=== PATIENT | male | born 1975 | race Caucasian/White ===

== ENCOUNTER 2018-02-08 22:11 | Emergency (ER) | payer OTHER, SELFPAY ==
[2018-02-08 22:12] VITALS: BP 160/97; PULSE 96; RESP 15; TEMP 36.9; BMI 52.6
--- NOTE | 2018-02-08 22:21 | EKG12_ITS ---
Test Reason : CP Blood Pressure : / mmHG Vent. Rate : 092 BPM Atrial Rate : 092 BPM P-R Int : 146 ms QRS Dur : 106 ms QT Int : 378 ms P-R-T Axes : 040 035 050 degrees QTc Int : 467 ms Sinus rhythm with occasional Premature ventricular complexes Nonspecific T wave abnormality Prolonged QT Abnormal ECG Confirmed by LANA ESPINAL, TEA ([id number]), assistant film editor MACY JAMES ([id number]) on 02/12/2018 2:24:31 PM Referred By: KIERAN Confirmed By:TEA SCHWARTZ MD
--- NOTE | 2018-02-08 22:21 | RAD_ITS ---
STUDY: X-RAY CHEST REASON FOR EXAM: Male, 42 years old. Chest pain TECHNIQUE: Single AP portable view of the chest. COMPARISON: 10/20/2010. FINDINGS: The lungs are clear and expanded. There is no demonstrated pleural abnormality. Normal size heart. Normal mediastinum and yinka. Normal visualized pulmonary arteries. Normal visualized aortic arch and descending thoracic aorta. Normal visualized thoracic spine. Normal visualized ribs, clavicles, and shoulders. There is no demonstrated abnormality of the visualized soft tissue structures of the upper abdomen. RAD/Chest 1 View (Portable) IMPRESSION: Normal x-ray examination of the chest. Electronically Signed: Ayden Vazquez MD at 23:07 EDT , Service support ,
--- NOTE | 2018-02-08 22:21 | ED.VISSUMM ---
- ER Visit Summary Date of Service: 02/08/18 Chief Complaint: Chest pain, shortness of breath History of Present Illness: The patient is a 42 M who presents with chest pain and shortness of breath. He states for the past 1 week he has had intermittent pains in the left lower chest area. He describes them as sharp. They come and go as they please and nothing provokes them or makes it better. He states he has had associated shortness of breath has been constant. He feels fatigued as well. He states that he works a full-time job and goes to college full-time. He sleeps about 4 hours a night. He denies any leg swelling he has no DVT or PE history or risk factors. He is hypertensive and diabetic patient. He is a non-smoker. He has no significant early family history of coronary disease Physical Examination: Vital signs reviewed. HEENT exam unremarkable. Heart is regular rate and rhythm without murmurs. Lungs are clear to auscultation. His chest is nontender to palpation. Abdomen is soft and nontender. Extremities reveal no edema. Peripheral pulses are equal. Skin exam normal. Neurologic exam normal. Test Results: EKG is normal sinus rhythm with rate of 92. No ST changes. Laboratory studies normal except for platelets of 141. D-dimer 0.66 CTA of the chest reveals small nodules with no PE or dissection. Chest x-ray normal Emergency Department Course and Treatment: Patient was given aspirin. CTA was obtained to the elevated d-dimer. Showed no acute findings. He was notified of the pulmonary nodules and will follow up with his PCP. His pain is intermittent. I do not feel that this is cardiac in nature. He has a ANIKA score of 0. He is low risk. I discussed follow-up with him that he needs to see his PCP for further evaluation. At this point I do not feel he needs to be admitted Treatment Plan: [] Disposition: Discharge Impression: Chest pain This note was generated with [employer] dictation software. It may contain incorrect words, spelling, and punctuation that were not noted in review of the chart prior to signing ED Disposition - Plan for ED Patient: Disposition: Home or Assisted Living Chief Complaint: Chest Pain Instructions: ED Chest Pain NonCardiac Referrals: Derrick Fernandez MD [Primary Care Provider] -
--- NOTE | 2018-02-08 22:25 | NURSING ---
NO OLD EKG
[2018-02-08 22:37] LABS: Absolute Lymphocyte Count 2.74 X10^3/ul (0.83-4.51); Basophil# 0.02 X10^3/uL; Basophil% 0.3 % (0-1); Eosinophil# 0.19 X10^3/uL; Eosinophils% 2.9 % (0-5); Hematocrit 44.9 % (40-54); Lymphocyte # 2.74 X10^3/ul (4.0); Lymphocyte % 42.4 % (19-41); Mean Corp Hgb Conc 35.6 g/gl (32-36); Mean Corpuscular Hgb 29.6 pg (27.0-32.0); Mean Corpuscular Volume 83.1 fL (80-94); Mean Platelet Vol. 10.3 fl (6.2-12.0); Monocyte% 7.7 % (0-10); Neutrophil % 46.5 % (47-70); POSITIVE COUNT NO; POSITIVE DIFFERENTIAL NO; POSITIVE MORPHOLOGY NO; Platelet Count 141 K/mm3 (150-450); RBC Distribution Width CV 13.5 % (11.6-14.6); RBC Distribution Width SD 40.4 fl (35.1-43.9); White Blood Count 6.5 K/mm3 (4.4-11.0)
[2018-02-08] MEDS: Aspirin 81 MG TAB.CHEW 324 MG PO (22:45)
[2018-02-08 22:46] VITALS: O2SAT 96
[2018-02-08 22:48] LABS: D-Dimer Quantitative (DVT/PE) 0.66 FEU/ug/m (0.27-0.49)
--- NOTE | 2018-02-08 22:48 | CT_ITS ---
CTA Chest WO/W Contrast INDICATION: ELEV DDIMER/CP. Repeated study d/t suboptimal filling of pulmonary arteries COMPARISON: None TECHNIQUE: High resolution axial CT imaging of the chest during intravenous contrast administration, CTA protocol. Multiplanar and MIP reformatted images. 200 mL of Isovue-370 were given intraveniously. (Repeat due to difficulties in bolus timing) Radiation dose optimization technique applied. FINDINGS: Opacification of the pulmonary arterial vascularity is suboptimal. There is no evidence of central or segmental pulmonary arterial filling defect to suggest PE. Subsegmental vessels are not well seen. The thoracic aorta is unremarkable. The heart size is normal. Is no evidence of mediastinal or hilar lymphadenopathy. A calcified granuloma is noted in the right middle lobe and at the right base. Subsegmental atelectasis are seen in the dependent portions of the lower lobes. The lungs are otherwise clear. No evidence of pleural effusion. CT/CTA Chest W/WO Contrast IMPRESSION: No evidence of PE or aortic dissection. 2 small right middle lobe and lower lobe calcified granulomas and subsegmental atelectasis in dependent portions of the lung bases, lungs otherwise clear. at 0011 Reported and signed by: Bertha Contreras MD Electronically Signed: Bertha Contreras MD at 0:10 EDT Tel , Service support ,
--- NOTE | 2018-02-08 22:48 | NURSING ---
DR. ALCARAZ MADE AWARE OF D DIMER OF 0.66
[2018-02-08 22:52] LABS: Anion Gap 7 (5-15); BUN 13 mg/dL (7-18); BUN/Creat Ratio 12.4 RATIO (10-20); Calcium,Total 8.4 mg/dL (8.5-10.1); Chloride 104 mmol/L (98-107); Creatinine, Serum 1.05 mg/dL (0.70-1.30); EST Glomerular Filtration Rate 83 mL/min (>60); Est Glom Filt Rate - Afr Amer 100 mL/min (>60); Glucose 329 mg/dL (74-106); Sodium Level 136 mmol/L (136-145)
--- NOTE | 2018-02-09 00:04 | ED.DEP ---
ED Disposition - Plan for ED Patient: Disposition: Home or Assisted Living Chief Complaint: Chest Pain Instructions: ED Chest Pain NonCardiac Referrals: Derrick Fernandez MD [Primary Care Provider] -
[2018-02-09 00:22] VITALS: BP 150/87; PULSE 86; PULSE 89; RESP 20; O2SAT 95
== END 2018-02-09 00:25 | disposition home or self-care (01) ==
PROVIDERS: Emergency Provider Emergency Medicine; Family Provider Family Medicine; PCP Family Medicine
DX: R07.9 Chest pain, unspecified (principal); R06.02 Shortness of breath; I10 Essential (primary) hypertension; E11.9 Type 2 diabetes mellitus without complications; Z79.84 Long term (current) use of oral hypoglycemic drugs; Z79.899 Other long term (current) drug therapy
CPT/HCPCS: 71045; 71275; 80048; 84484; 85025; 85379; 93005; 99285; Q9967; A4216

== ENCOUNTER 2019-05-03 11:49 | Emergency (ER) | payer MEDICAID, SELFPAY ==
[2019-05-03 11:50] VITALS: BP 158/94; PULSE 76; RESP 17; TEMP 36.1; O2SAT 98; BMI 42.7
--- NOTE | 2019-05-03 12:58 | ED.VISSUMM ---
- ER Visit Summary Date of Service: 05/03/19 Chief Complaint: Left upper dental pain and swelling History of Present Illness: The patient is a 44 M no seen in past medical history. Patient states he fractured his tooth a week or 2 ago. And now he has more pain and swelling. Denies any fever or discharge. Physical Examination: Middle-aged male. No acute distress. Vital signs are stable and afebrile. HEENT exam left upper premolar is fractured about half tooth is missing. The gum above it is mildly swollen. There is no fluctuance or anything in the drain. He also has multiple missing molars and eroded teeth. There is no swelling or tenderness underneath his tongue. Posterior pharynx is normal. Neck nontender no lymphadenopathy. Lungs clear to auscultation bilaterally. Heart regular rhythm no murmur. Abdomen soft nontender. Otherwise exam is unremarkable. Test Results: None Emergency Department Course and Treatment: Dental fracture with early soft tissue dental infection. Noted on Pen-Vee K in the emergency department. Treatment Plan: Follow-up with his dentist as soon as possible. Pen-Vee K 4 times daily for 10 days. Motrin and Tylenol for pain. Disposition: DC Impression: Left upper premolar dental fracture with soft tissue dental infection This note was generated with [employer] dictation software. It may contain incorrect words, spelling, and punctuation that were not noted in review of the chart prior to signing ED Disposition - Plan for ED Patient: Referrals: Derrick Fernandez MD [Primary Care Provider] -
--- NOTE | 2019-05-03 13:00 | ED.DEP ---
ED Disposition - Plan for ED Patient: Disposition: Home or Assisted Living Instructions: Dental Abscess Prescriptions: Penicillin Vk [Pen-Vee K , V-Cillin K] 500 mg PO 4X/DAY #40 tab Prescription Printed Additional Instructions: Call and follow-up with your dentist as soon as possible. Warm salt water gargling. Tylenol and Motrin for pain. Penicillin 4 times a day till gone.
[2019-05-03] MEDS: Penicillin Vk 250 MG Tablet 500 MG PO (13:09)
== END 2019-05-03 13:14 | disposition home or self-care (01) ==
PROVIDERS: Emergency Provider Emergency Medicine; Family Provider Family Medicine; PCP Family Medicine
DX: S02.5XXA Fracture of tooth (traumatic), initial encounter for closed fracture (principal); X58.XXXA Exposure to other specified factors, initial encounter; Y93.9 Activity, unspecified; K04.7 Periapical abscess without sinus
CPT/HCPCS: 99283

== ENCOUNTER 2020-08-14 03:38 | Emergency (ER) | payer MEDICAID, SELFPAY ==
[2020-08-14 03:41] VITALS: BP 188/97; PULSE 88; RESP 18; TEMP 36.9; O2SAT 98; BMI 47.4
--- NOTE | 2020-08-14 03:58 | ED.VIS.GEN ---
History of Present Illness Chief Complaint: Cold Sx Informant: Patient Onset: Days Context: Gradual Onset Current Severity: Mild Maximum Severity: Mild Narrative: Patient presents with mild cough and congestion. He is not bringing up any sputum. No fevers or chills. His daughter is here being seen for similar. Patient denies any known Covid exposure. Denies longstanding lung disease. - Past Medical History (1) Hypertension Status: Chronic (2) Diabetes Status: Chronic Past Medical History - Allergies and Home Meds Allergies/Adverse Reactions: Allergies lisinopril Allergy (Verified 08/14/20 03:39) Anaphylaxis Primary Care Physician: Derrick Fernandez MD [Primary Care Provider] - Prior records reviewed: Yes Lives: With Family Smoking Status: Never smoker Review of Systems General: Denies: Chills, Fever Eyes: Denies: Visual changes - bilaterally ENT: Denies: Bilateral ear pain Cardiovascular: Denies: Chest pain Respiratory: Reports: Dyspnea, Cough. Denies: Sputum Gastrointestinal: Denies: Abdominal pain, Nausea, Vomiting, Diarrhea Neurological: Denies: Headache Hematologic: Denies: Easy bruising, Easy bleeding Allergy: Denies: Uticaria Physical Exam Vital Signs/Narrative: Vital Signs Temp Pulse Resp BP Pulse Ox 08/14/20 03:41 98.5 F 88 18 188/97 H 98 Inital Vital Signs reviewed: Yes General: Well nourished, Well developed Head: Normocephalic ENT: Moist mucous membranes Neck: Supple Cardiovascular: Regular rate, Regular rhythm Respiratory: No distress, CTA bilaterally Abdomen: Soft, Nontender Skin: Normal color Neurological: Alert, Oriented x3 Psychological: Normal affect Diagnostic/Tx/Re-eval 08/14/20 04:03 Mucosa - Nose SARS-CoV-2 Antigen (Rapid) - Final - Medical Decision Making Rapid Covid antigen test is negative. I discussed with patient using supportive care for his symptoms. Lungs are clear with good oxygen saturation. Do not feel he needs x-ray imaging at this time. ED Disposition - Plan for ED Patient: Disposition: Home or Assisted Living Diagnosis: Viral URI Instructions: ED URI Viral Referrals: Derrick Fernandez MD [Primary Care Provider] - As Needed
== END 2020-08-14 04:48 | disposition home or self-care (01) ==
PROVIDERS: Emergency Provider Emergency Medicine; PCP Family Medicine
DX: J06.9 Acute upper respiratory infection, unspecified (principal)
CPT/HCPCS: 87426; 99282

== ENCOUNTER 2021-03-23 19:49 | Observation (INO) | payer MEDICAID, SELFPAY ==
[2021-03-23 19:50] VITALS: BP 186/97; PULSE 103; RESP 16; TEMP 36.4; O2SAT 99; BMI 48.9
--- NOTE | 2021-03-23 20:16 | EKG12_ITS ---
Test Reason : CP Blood Pressure : / mmHG Vent. Rate : 094 BPM Atrial Rate : 094 BPM P-R Int : 148 ms QRS Dur : 142 ms QT Int : 374 ms P-R-T Axes : 032 023 -06 degrees QTc Int : 467 ms Normal sinus rhythm Right bundle branch block Cannot rule out Inferior infarct , age undetermined Abnormal ECG Confirmed by DENISSE ESPINAL, DARREL ([id number]), story editor CARLOS RIVERA ([id number]) on 03/27/2021 1:07:49 PM Referred By: LAKHWINDER Confirmed By:DARREL SALCEDO MD
--- NOTE | 2021-03-23 20:17 | EDS_ITS ---
HPI History of Present Illness Chief Complaint: Chest Pain Informant: patient Onset/Context/Timing Onset: Days Activity at onset: gradual Timing: Intermittent and Lasts (10 to 15 minutes) Quality: Positive for Tightness Location: Substernal, Right Chest and Left Chest Worsened By: Exertion Relieved By: Rest Associated Symptoms: Positive for Diaphoresis and Dyspnea; Negative for Nausea, Vomiting, Cough, Fever, Lightheadedness, Acid Reflux and Palpitations Narrative Narrative: Patient presents with chest pain and shortness of breath that has been intermittent over the past couple days. Patient states it has come on gradually. Patient states it is worse whenever he exercises. Patient states that his pain and shortness of breath will last approximately 10 to 15 minutes and then resolved. Patient states he feels like there is a tightness around his chest. Patient states it is diffuse across both sides of his chest. Patient states it is worse with exertion and better with rest. Patient admits to some diaphoresis yesterday. Patient denies any nausea or vomiting. Patient denies any cough or fevers. Patient denies any lightheadedness or palpitations. CVD Risk Factors: Positive for Diabetes; Negative for Hypertension, Hypercholesterolemia, Family History 1' </=55 and Smoking PE Risk Factors: Negative for Recent Travel/Surgery, Recent Immobilization, Prior DVT or PE and Cancer [facility] Medical History Diabetes Home Medications ergocalciferol (vitamin D2) [Vitamin D2] 1,000 unit PO DAILY 03/23/21 [History Last Taken Unknown] metformin 500 mg PO DAILY 03/23/21 [History Last Taken Unknown] Allergy/AdvReac Type Severity Reaction Status Date / Time lisinopril Allergy Anaphylaxis Verified 03/23/21 19:53 Social History Smoking Status: Never smoker ROS ROS ED Constitutional Constitutional ED: Denies chills or fever(s) Eyes Eyes: Denies blurry vision or change in vision ENT ENT ED: Denies rhinorrhea or sore throat Cardiovascular Cardiovascular: Reports chest pain; Denies palpitations Respiratory/Chest Respiratory/Chest: Reports dyspnea; Denies cough Gastrointestinal Gastrointestinal: Reports nausea; Denies abdominal pain or vomiting Genitourinary Genitourinary ED: Denies dysuria or hematuria Musculoskeletal Musculoskeletal: Reports back pain; Denies neck pain Integumentary Reports rash; Denies abscess Neurologic Neurologic: Denies headache(s) or weakness Allergic/Immunologic Allergic/Immunologic ED: Denies mouth swelling or urticaria EXAM Physical Exam Const Vital Signs: 03/23/21 19:50 03/23/21 19:57 03/23/21 20:28 Temperature 97.6 F L Temperature Source Temporal Pulse Rate 103 H Respiratory Rate 16 Respiratory Effort Normal Non-Labored Blood Pressure 186/97 H Blood Pressure Mean 126 Pulse Ox 99 Oxygen Delivery Method Room Air Room Air 03/23/21 20:34 03/23/21 20:49 03/23/21 22:00 Temperature Temperature Source Pulse Rate 97 78 78 Respiratory Rate 15 16 Respiratory Effort Blood Pressure 158/102 H 130/70 H 129/75 H Blood Pressure Mean 90 93 Pulse Ox 97 98 Oxygen Delivery Method Room Air Room Air 03/23/21 23:00 Temperature Temperature Source Pulse Rate 79 Respiratory Rate 19 H Respiratory Effort Blood Pressure 140/92 H Blood Pressure Mean 108 Pulse Ox 98 Oxygen Delivery Method Room Air Positive well nourished, well developed and obese General Appearance ED: well developed Nutritional Appearance: obese HEENT normocephalic and atraumatic Eyes PERRL and EOMs intact bilaterally Neck supple and no JVD Chest Wall palpation of chest normal Resp normal respiratory effort and clear to auscultation bilaterally Effort and Inspection: Negative for respiratory distress Cardio regular rate, regular rhythm and no murmurs GI normal to inspection, nondistended, normoactive bowel sounds, soft to palpation, non-tender and non-distended Extremity normal to inspection General Extremety ED: Negative for edema or tenderness General Extremity: Negative for edema Neuro oriented x3, CN's II-XII intact bilaterally and no sensory deficits noted Sensorium / Orientation: awake and alert Motor Exam: strength 5/5 throughout Psych mental status grossly normal Heart Score History: Highly Suspicious ECG: Nonspecific Repolarization Age: </= 45 years Risk Factors: 1 or 2 Risk Factors Troponin: </= Normal Limit Score: 4 MDM MDM MDM Narrative Medical decision making narrative: EKG was obtained. On my interpretation, it showed a normal sinus rhythm with a rate of 94. VT interval and QTc intervals were all normal. [place] was normal. There are nonspecific ST-T wave changes. There is a new right bundle branch block pattern compared to previous EKG. Portable 1 view chest x-ray was obtained. On my interpretation, lung galeas are clear. There is normal cardiac silhouette. Bony thorax is normal. There is no acute process noted. Radiologist also interpreted the x-ray and agrees. CBC and basic metabolic profile were obtained and were essentially within normal limits. D-dimer was obtained and was slightly elevated at 0.58. High- sensitivity troponin was 4.0. Repeat high-sensitivity troponin was 4.9. CTA of the chest was obtained. There is no evidence of central pulmonary embolism. This was interpreted by the radiologist and reviewed by myself. Patient has a HEART score of 4. Case was discussed with the hospitalist. Patient will be admitted for observation. Patient understands and is agreeable with the plan. All questions were answered. Lab Data Attestation: I reviewed the patient's lab results. Labs: Laboratory Results - last 24 hr 03/23/21 03/23/21 03/23/21 20:04 20:04 20:28 WBC 10.4 RBC 5.76 Hgb 16.4 Hct 48.6 MCV 84.4 MCH 28.5 MCHC 33.7 RDW Std Deviation 40.0 RDW Coeff of Eugenie 13.2 Plt Count 186 MPV 10.6 Immature Gran % (Auto) 0.400 Neut % (Auto) 69.2 Lymph % (Auto) 23.1 Bacon % (Auto) 5.9 Eos % (Auto) 0.8 Baso % (Auto) 0.6 Absolute Neuts (auto) 7.2 Absolute Lymphs (auto) 2.41 Nucleated RBC % 0 D-Dimer Quant (PE/DVT) 0.58 H* Sodium 136 Potassium 4.4 Chloride 104 Carbon Dioxide 29.0 Anion Gap 3 L BUN 19 H Creatinine 1.21 Estim Creat Clear Calc 81.28 Est GFR (MDRD) Af Amer 84 Est GFR (MDRD) Non-Af 69 BUN/Creatinine Ratio 15.7 Glucose 276 H Calcium 9.3 Troponin I High Sens 4.0 03/23/21 22:06 WBC RBC Hgb Hct MCV MCH MCHC RDW Std Deviation RDW Coeff of Eugenie Plt Count MPV Immature Gran % (Auto) Neut % (Auto) Lymph % (Auto) Bacon % (Auto) Eos % (Auto) Baso % (Auto) Absolute Neuts (auto) Absolute Lymphs (auto) Nucleated RBC % D-Dimer Quant (PE/DVT) Sodium Potassium Chloride Carbon Dioxide Anion Gap BUN Creatinine Estim Creat Clear Calc Est GFR (MDRD) Af Amer Est GFR (MDRD) Non-Af BUN/Creatinine Ratio Glucose Calcium Troponin I High Sens 4.9 Radiography Chest X-Ray - ED: 1 View, Read by ED Physician, Read by Radiologist and Normal Diagnostic Testing: Radiology Impression Chest X-Ray 03/23/21 20:35 IMPRESSION: No acute radiographic abnormalities. Electronically Signed: Jack Galvez MD at 21:31 EDT Tel , Service support , Chest CTA 03/23/21 22:02 IMPRESSION: 1. There is limited enhancement of the main pulmonary artery and right and left pulmonary arteries. There is limited enhancement of the bilateral peripheral pulmonary arteries. There is no demonstrated large or obvious pulmonary embolism, however smaller emboli cannot be excluded due to suboptimal contrast opacification of the arteries. 2. No consolidation or pulmonary edema or pleural effusion is present. Electronically Signed: Amado Burns MD at 23:29 EDT , Service support , EKG Initial EKG: Attestation: I personally reviewed and interpreted this EKG as follows: Interpretation: Sinus Rhythm (94), No Acute Injury Pattern, RBBB and Non-Specific ST Changes Prior EKG tracings: available for review Prior: Changed (The right bundle branch block is new compared to previous EKG dated 02/08/2018.) Treatment and Re-Evaluation Vital Sign Attestation:: Vital signs were reviewed prior to admission. They are stable. Discharge Plan Triage Chief Complaint: Chest Pain ED Provider: Yovani Sandoval Dx/Rx/DC Orders Clinical Impression: Chest pain Prescriptions: No Action metformin 500 mg Tablet Extended Release 24 Hr 500 mg PO DAILY RF: 0 Vitamin D2 1,000 unit Capsule 1,000 unit PO DAILY RF: 0 Primary Care Provider: Derrick Fernandez Referrals: Derrick Fernandez MD [Primary Care Provider] - Disposition Disposition: Acute Care Hospital [facility]
[2021-03-23] MEDS: Aspirin 81 MG TAB.CHEW 324 MG PO (20:32)
[2021-03-23 20:34] VITALS: BP 158/102; PULSE 97
[2021-03-23] MEDS: Nitroglycerin SL (ED/IMG/CATH) 0.4 MG TABLET SL (20:34)
--- NOTE | 2021-03-23 20:35 | RAD_ITS ---
INDICATION: chest pain EXAMINATION/TECHNIQUE: X-RAY - XR Chest 1 View COMPARISON: None. FINDINGS: The lungs are clear. The cardiomediastinal silhouette is unremarkable. No pleural effusion or pneumothorax. No acute osseous abnormalities. RAD/Chest 1 View (Portable) IMPRESSION: No acute radiographic abnormalities. Electronically Signed: Jack Galvez MD at 21:31 EDT Tel , Service support ,
[2021-03-23 20:37] LABS: Absolute Lymphocyte Count 2.41 X10^3/uL (0.83-4.51); Absolute Neutrophil Count 7.2 X10^3/uL (2.0-7.7); Basophil# 0.06 X10^3/uL; Basophil% 0.6 % (0-1); Eosinophil# 0.08 X10^3/uL; Eosinophils% 0.8 % (0-5); Hematocrit 48.6 % (40-54); Hemoglobin 16.4 g/dL (13.0-16.5); Lymphocyte # 2.41 X10^3/ul (0.83-4.51); Lymphocyte % 23.1 % (19-41); Mean Corp Hgb Conc 33.7 g/dL (32-36); Mean Corpuscular Hgb 28.5 pg (27.0-32.0); Mean Corpuscular Volume 84.4 fL (80-94); Mean Platelet Vol. 10.6 fl (6.2-12.0); Monocyte# 0.62 X10^3/uL; Monocyte% 5.9 % (0-10); NRBC Flagged by Analyzer 0 % (0-5); Neutrophil # 7.23 X10^3/uL (2.7-7.7); Neutrophil % 69.2 % (47-70); Platelet Count 186 K/mm3 (150-450); RBC Distribution Width CV 13.2 % (11.6-14.6); Red Blood Count 5.76 M/mm3 (4.6-6.2); White Blood Count 10.4 K/mm3 (4.4-11.0)
[2021-03-23 20:49] VITALS: BP 130/70; PULSE 78; RESP 15; O2SAT 97
[2021-03-23 20:51] LABS: Anion Gap 3 (5-15); BUN 19 mg/dL (7-18); BUN/Creat Ratio 15.7 RATIO (10-20); Calcium,Total 9.3 mg/dL (8.5-10.1); Chloride 104 mmol/L (98-107); Creatinine, Serum 1.21 mg/dL (0.70-1.30); EST Glomerular Filtration Rate 69 mL/min (>60); Est Glom Filt Rate - Afr Amer 84 mL/min (>60); Estimated Creatinine Clearance 81.28 ml/min; Glucose 276 mg/dL (74-106); Potassium 4.4 mmol/L (3.5-5.1); Sodium Level 136 mmol/L (136-145)
[2021-03-23 21:33] LABS: D-Dimer Quantitative (DVT/PE) 0.58 FEU/ug/m (0.27-0.49)
[2021-03-23 22:00] VITALS: BP 129/75; PULSE 78; RESP 16; O2SAT 98
--- NOTE | 2021-03-23 22:02 | CT_ITS ---
STUDY: CTA CHEST REASON FOR EXAM: Male, 45 years old. Elevated D-dimer RADIATION DOSAGE (If Supplied By Facility): CTDIvol = ( 15.832 ) mGy, DLP = ( 1099.10 ) mGycm TECHNIQUE: The examination was performed with the intravenous administration of IV 100mL Isovue-370. Post-processing of the angiographic images was performed, with multiplanar reformation and 3D reconstruction. Individualized dose optimization techniques were used for this CT. COMPARISON: CT of the chest dated FEBRUARY 08, 2018 FINDINGS: There is limited enhancement of the main pulmonary artery and right and left pulmonary arteries. There is limited enhancement of the bilateral peripheral pulmonary arteries. There is no demonstrated large or obvious pulmonary embolism, however smaller emboli cannot be excluded due to suboptimal contrast opacification of the arteries. Normal thoracic aorta and visualized great vessels. There is no demonstrated aortic dissection. Normal heart size and pericardium. Normal mediastinum. Normal hilar regions. Normal visualized trachea and bronchi. The lungs are well expanded. Normal pulmonary parenchyma. A small calcified granuloma is present in the right lower lobe. No consolidation or pulmonary edema or pleural effusion is present. Normal pleura. Normal chest wall structures. There are degenerative changes of thoracic spine. Normal visualized upper abdomen. CT/CTA Chest W/WO Contrast IMPRESSION: 1. There is limited enhancement of the main pulmonary artery and right and left pulmonary arteries. There is limited enhancement of the bilateral peripheral pulmonary arteries. There is no demonstrated large or obvious pulmonary embolism, however smaller emboli cannot be excluded due to suboptimal contrast opacification of the arteries. 2. No consolidation or pulmonary edema or pleural effusion is present. Electronically Signed: Amado Burns MD at 23:29 EDT , Service support ,
[2021-03-23 22:33] LABS: Troponin-I HS 4.9 pg/mL (3.0-78.5)
[2021-03-23] MEDS: 0.9% Normal Saline 1,000 ML 999 ML IV (22:51)
[2021-03-23 23:00] VITALS: BP 140/92; PULSE 79; RESP 19; O2SAT 98
[2021-03-24] VITALS (10 sets, daily range): BP systolic 134–182; BP diastolic 72–105; PULSE 68–84; RESP 14–18; TEMP 36.7–37; O2SAT 96–98; BMI 49.6
--- NOTE | 2021-03-24 00:25 | HP.PCM_ITS ---
Documented by User: Miesha Santoro NP-C 03/24/21 00:36 HPI - General General Date of Admission: 03/24/21 HPI Narrative WASHINGTON GREWAL, is a 45 M who presents with complaints of chest tightness and shortness of breath. Patient states that he has had increasing chest tightness and shortness of breath with activity including walking and swimming. Patient states it takes him approximately 10 to 15 minutes to recover. Patient denies pain only pressure. Patient denies fever, chills, cough, nausea, vomiting. [facility] Medical History Diabetes Home Medications ergocalciferol (vitamin D2) [Vitamin D2] 1,000 unit PO DAILY 03/23/21 [History Last Taken 03/23/21] metformin 500 mg PO DAILY 03/23/21 [History Last Taken 03/23/21] prednisone 10 mg PO DAILY 03/24/21 [History Last Taken 03/23/21] Allergy/AdvReac Type Severity Reaction Status Date / Time lisinopril Allergy Anaphylaxis Verified 03/23/21 19:53 Family History Father Hypertension Social History (Updated 03/24/21 @ 00:27 by Miesha Santoro NP-C) Smoking Status: Never smoker substance use type: does not use ROS Constitutional Constitutional: Denies anorexia, chills, fatigue, fever(s) or weakness Cardiovascular Cardiovascular: Reports dyspnea on exertion, easily tiring during activity and other Details: Chest pressure with exertion ; Denies chest pain, hypertension or nausea Respiratory/Chest Respiratory/Chest: Reports shortness of breath with exertion; Denies cough Gastrointestinal Gastrointestinal: Denies abdominal pain, constipation, diarrhea, nausea or vomiting Genitourinary Genitourinary: Denies dysuria Musculoskeletal Musculoskeletal: Denies back pain, extremity pain, joint pain or joint stiffness Integumentary Integumentary: Denies dry skin Neurologic Neurologic: Denies abnormal gait, abnormal speech, confusion, dizziness or focal weakness Psychiatric Psychiatric: Denies anxiety or depression Endocrine Endocrinology: Denies change in body appearance Hematologic/Lymphatic Hematologic/Lymphatic: Denies easy bleeding or easy bruising Vital Signs Vital Signs Vital Signs: 03/23/21 19:50 03/23/21 19:57 03/23/21 20:28 Temperature 97.6 F L Temperature Source Temporal Pulse Rate 103 H Respiratory Rate 16 Respiratory Effort Normal Non-Labored Blood Pressure 186/97 H Blood Pressure Mean 126 Pulse Ox 99 Oxygen Delivery Method Room Air Room Air 03/23/21 20:34 03/23/21 20:49 03/23/21 22:00 Temperature Temperature Source Pulse Rate 97 78 78 Respiratory Rate 15 16 Respiratory Effort Blood Pressure 158/102 H 130/70 H 129/75 H Blood Pressure Mean 90 93 Pulse Ox 97 98 Oxygen Delivery Method Room Air Room Air 03/23/21 23:00 03/24/21 00:08 Temperature 98.2 F Temperature Source Oral Pulse Rate 79 84 Respiratory Rate 19 H 14 Respiratory Effort Blood Pressure 140/92 H 149/105 H Blood Pressure Mean 108 119 Pulse Ox 98 98 Oxygen Delivery Method Room Air Room Air Weight Weight: 341 lb Body Mass Index (BMI) 48.9 Physical Exam Const alert, oriented x3 and no apparent distress General Appearance: cooperative HEENT normocephalic and head/scalp atraumatic Eyes conjunctivae normal and no scleral icterus Neck supple and no JVD General: trachea midline Resp normal respiratory effort, normal air movement and clear to auscultation bilaterally Cardio regular rate, regular rhythm, S1 normal heart sound and S2 normal heart sound GI normal to inspection, nondistended, normoactive bowel sounds, soft to palpation and non-tender Extremity normal capillary refill and no clubbing, cyanosis or edema General Extremity: no tenderness to palpation of joints or extremities Skin General Skin Exam: no breakdown and turgor normal Lesions: no lesions Rashes: no rashes Neuro no focal motor deficits and no sensory deficits noted Speech: speech normal Motor Exam: general weakness Psych thought process normal, cooperative and affect normal Appearance: appropriate Results Lab / Micro Data Result Diagrams: 03/23/21 20:04 03/23/21 20:04 Labs: Laboratory Results - last 24 hr 03/23/21 03/23/21 03/23/21 20:04 20:04 20:28 WBC 10.4 RBC 5.76 Hgb 16.4 Hct 48.6 MCV 84.4 MCH 28.5 MCHC 33.7 RDW Std Deviation 40.0 RDW Coeff of Eugenie 13.2 Plt Count 186 MPV 10.6 Immature Gran % (Auto) 0.400 Neut % (Auto) 69.2 Lymph % (Auto) 23.1 [place] % (Auto) 5.9 Eos % (Auto) 0.8 Baso % (Auto) 0.6 Absolute Neuts (auto) 7.2 Absolute Lymphs (auto) 2.41 Nucleated RBC % 0 D-Dimer Quant (PE/DVT) 0.58 H* Sodium 136 Potassium 4.4 Chloride 104 Carbon Dioxide 29.0 Anion Gap 3 L BUN 19 H Creatinine 1.21 Estim Creat Clear Calc 81.28 Est GFR (MDRD) Af Amer 84 Est GFR (MDRD) Non-Af 69 BUN/Creatinine Ratio 15.7 Glucose 276 H Calcium 9.3 Troponin I High Sens 4.0 03/23/21 22:06 WBC RBC Hgb Hct MCV MCH MCHC RDW Std Deviation RDW Coeff of Eugenie Plt Count MPV Immature Gran % (Auto) Neut % (Auto) Lymph % (Auto) [place] % (Auto) Eos % (Auto) Baso % (Auto) Absolute Neuts (auto) Absolute Lymphs (auto) Nucleated RBC % D-Dimer Quant (PE/DVT) Sodium Potassium Chloride Carbon Dioxide Anion Gap BUN Creatinine Estim Creat Clear Calc Est GFR (MDRD) Af Amer Est GFR (MDRD) Non-Af BUN/Creatinine Ratio Glucose Calcium Troponin I High Sens 4.9 Radiology Impression Chest X-Ray 03/23/21 20:35 IMPRESSION: No acute radiographic abnormalities. Electronically Signed: Jack Galvez MD at 21:31 EDT Tel , Service support , Chest CTA 03/23/21 22:02 IMPRESSION: 1. There is limited enhancement of the main pulmonary artery and right and left pulmonary arteries. There is limited enhancement of the bilateral peripheral pulmonary arteries. There is no demonstrated large or obvious pulmonary embolism, however smaller emboli cannot be excluded due to suboptimal contrast opacification of the arteries. 2. No consolidation or pulmonary edema or pleural effusion is present. Electronically Signed: Amado Burns MD at 23:29 EDT , Service support , Assessment & Plan Assessment/Plan (1) Chest tightness: PLAN: 1. Chest tightness -Admit to PCU for cardiac monitoring -Trend cardiac enzymes -Echocardiogram ordered for a.m. -Treadmill stress test ordered for a.m. -CBC and BMP ordered for a.m. -As needed nitroglycerin and morphine ordered for pain -vital signs per protocol, trend BP and heart rate -Oxygen per protocol -N.p.o. at midnight for pending stress test 2. Diabetes mellitus type 2 -Hold Metformin due to IV contrast administration -AC at bedtime blood sugars with sliding scale insulin ordered -Hypoglycemia protocol ordered 3. Hypertension -Per patient report patient currently well controlled with diet and exercise, PCP took patient off all medications. -Vital signs per protocol trend BP 4. Elevated D-dimer -D-dimer 0.58, CTA negative for PE -Upon review of labs patient had a elevated D-dimer in 2018 as well DVT prophylaxis-subcu Lovenox This patient was seen by EDIN Vu under the supervision of Dr. Cuba. Documented by User: Dr. Cyrus Cuba MD 03/24/21 02:07 HPI - General General Date of Admission: 03/24/21 [facility] Medical History Diabetes Home Medications ergocalciferol (vitamin D2) [Vitamin D2] 1,000 unit PO DAILY 03/23/21 [History Last Taken 03/23/21] metformin 500 mg PO DAILY 03/23/21 [History Last Taken 03/23/21] prednisone 10 mg PO DAILY 03/24/21 [History Last Taken 03/23/21] Allergy/AdvReac Type Severity Reaction Status Date / Time lisinopril Allergy Anaphylaxis Verified 03/23/21 19:53 Family History Father Hypertension Social History (Updated 03/24/21 @ 00:27 by ANDRESSA VuC) Smoking Status: Never smoker substance use type: does not use Results Lab / Micro Data Result Diagrams: 03/23/21 20:04 03/23/21 20:04 Charges/Coding Addendum Addendum: Patient was seen and examined independently. I agree with assessment and plan by EDIN Vu In summary, patient is a 45-year-old male with a significant history of obesity who presents to emergency department with 3 to 4-day history of exertional shortness of breath. Patient denies chest pain. He uses 1 pillow all the time to sleep and that has not changed. He uses a CPAP with a setting of 15 and denies paroxysmal nocturnal dyspnea. He reported that he lost about 160 pounds within a time period of a year and a half. However with Covid his gym was shut down and he was laid off and he ended up gaining all the weight back. He denies having Covid himself. About 3 days ago he went to [facility] for perioperative EKG for his upcoming bariatric surgery. Reportedly the EKG showed right bundle branch block. Physical exam: General: Well-nourished, well-developed, no acute distress Head: Normocephalic, atraumatic, no tenderness Eyes: PERRLA, EOMI ENT, no trauma, moist mucous membranes, no rhinorrhea Neck: Nontender, full range of motion, no spinal tenderness, deformities, step- off CVS: Regular rate and rhythm Respiratory no acute distress, clear to auscultation bilaterally, chest wall nontender, no wheezing Abdomen: Soft, nontender, nondistended, normal bowel sounds, no masses : Deferred Back: Nontender, no CVA tenderness, no midline spinal tenderness, deformities, step-offs Extremities: Nontender full range of motion, no trauma Skin: Petechial rash on bilateral lower extremities right worse than left (attributes to poison nelida) Neuro: Alert, oriented, cranial nerves II through XII grossly intact. Dyspnea Place on a monitored bed at PCU Radiology impression of chest x-ray: No acute radiographic abnormalities. Actual CXR image was independently visualized. No acute cardiopulmonary process was noted. Review of emergency department labs showed mildly elevated D-dimer . Chest CTA was limited by timing of contrast.. However no pulmonary embolism was noted. Actual EKG tracing was independently visualized. EKG tracing showed right bundle branch block Received full dose aspirin emergency department. High intensity troponin x2 was negative. Trend troponin Aspirin daily ordered. Check lipid panel Treadmill stress test with nuclear; and echocardiogram ordered. Diabetes mellitus Patient with hyperglycemia on presentation Home Metformin held Accu-Chek QA [facility] with correction scale insulin ordered. BMI: 49.6. Complicates care. Lifestyle modification recommended. Obstructive sleep apnea CPAP continued DVT prophylaxis SCD ordered Visit Charges OBSV E&M: 75476 Initial observation care L3
--- NOTE | 2021-03-24 00:31 | EKG12_ITS ---
Test Reason : CP ADMIT Blood Pressure : / mmHG Vent. Rate : 080 BPM Atrial Rate : 080 BPM P-R Int : 130 ms QRS Dur : 152 ms QT Int : 418 ms P-R-T Axes : -01 035 -11 degrees QTc Int : 482 ms Normal sinus rhythm Right bundle branch block Abnormal ECG When compared with ECG of 08-FEB-2018 22:23, Premature ventricular complexes are no longer Present Right bundle branch block is now Present Confirmed by DENISSE ESPINAL, DARREL ([id number]), metropolitan editor CARLOS RIVERA ([id number]) on 03/28/2021 7:43:59 AM Referred By: DR REAL Confirmed By:DARREL SALCEDO MD
[2021-03-24] MEDS: 0.9% Normal Saline 1,000 ML 100 ML IV (00:55)
[2021-03-24] MEDS: 0.9% Saline Lock 10 ML Syringe IV (01:22)
[2021-03-24] MEDS: DiphenhydrAMINE 25 MG Capsule PO (01:34)
[2021-03-24 02:06] LABS: Absolute Lymphocyte Count 2.84 X10^3/uL (0.83-4.51); Absolute Neutrophil Count 5.5 X10^3/uL (2.0-7.7); Basophil# 0.06 X10^3/uL; Basophil% 0.6 % (0-1); Eosinophil# 0.26 X10^3/uL; Eosinophils% 2.8 % (0-5); Hematocrit 44.7 % (40-54); Hemoglobin 15.4 g/dL (13.0-16.5); Lymphocyte # 2.84 X10^3/ul (0.83-4.51); Lymphocyte % 30.7 % (19-41); Mean Corp Hgb Conc 34.5 g/dL (32-36); Mean Corpuscular Hgb 28.8 pg (27.0-32.0); Mean Corpuscular Volume 83.6 fL (80-94); Mean Platelet Vol. 10.1 fl (6.2-12.0); Monocyte# 0.62 X10^3/uL; Monocyte% 6.7 % (0-10); NRBC Flagged by Analyzer 0 % (0-5); Neutrophil # 5.45 X10^3/uL (2.7-7.7); Platelet Count 171 K/mm3 (150-450); RBC Distribution Width CV 13.1 % (11.6-14.6); RBC Distribution Width SD 39.4 fl (35.1-43.9); Red Blood Count 5.35 M/mm3 (4.6-6.2); White Blood Count 9.3 K/mm3 (4.4-11.0)
[2021-03-24 02:26] LABS: Troponin-I HS 6.6 pg/mL (3.0-78.5)
[2021-03-24 02:30] LABS: Anion Gap 6 (5-15); BUN 18 mg/dL (7-18); BUN/Creat Ratio 18.4 RATIO (10-20); Calcium,Total 8.6 mg/dL (8.5-10.1); Chloride 106 mmol/L (98-107); Creatinine, Serum 0.98 mg/dL (0.70-1.30); EST Glomerular Filtration Rate 88 mL/min (>60); Est Glom Filt Rate - Afr Amer 107 mL/min (>60); Estimated Creatinine Clearance 100.35 ml/min; Glucose 184 mg/dL (74-106); Potassium 3.5 mmol/L (3.5-5.1); Sodium Level 138 mmol/L (136-145)
[2021-03-24] MEDS: Aspirin E.C. 81 MG Tablet PO (05:48)
--- NOTE | 2021-03-24 05:55 | ECHOCS_ITS ---
Reason For Study: Chest Pain Procedure This was a 2D Doppler, Color Flow transthoracic echocardiogram. Technically difficult study due to patients body habitus. Contrast injection performed. Exam performed in department. Left Ventricle Normal LV size. Mild concentric left ventricular hypertrophy. Left ventricular systolic function is normal. The estimated ejection fraction is 60 %. No regional wall motion abnormalities noted. Right Ventricle Normal RV size. Normal systolic function. Atria Normal left atrium. Normal right atrium. Mitral Valve Normal mitral valve. Tricuspid Valve Normal tricuspid valve. Aortic Valve Bicuspid aortic valve. There is no aortic stenosis. Pulmonic Valve Normal pulmonic valve. Great Vessels Normal aortic root. The pulmonary artery is normal size. Normal inferior vena cava. Pericardium/Pleural No pericardial effusion. Medication Diluted definity 2.5ml given slow IV push to enhance endocardial definition. MMode/2D Measurements & Calculations LVIDd: 5.4 cm IVSd: 1.2 cm LVOT diam: 2.4 cm LVIDs: 3.7 cm LVPWd: 1.2 cm FS: 32.1 % LVOT area: 4.6 cm2 Ao root diam: 3.6 cm LAV(MOD-bp): 63.1 ml Aortic Valve Planimetry: 3.8 cm2 LA dimension: 4.5 cm LAV(MOD-bp) Indexed: 24.0 ml/m2 LAV(MOD-sp2): 52.4 ml LAV(MOD-sp4): 66.8 ml LA A4 area: 22.3 cm2 RA A4 area: 17.7 cm2 Time Measurements MV dec time: 0.17 sec Doppler Measurements & Calculations MV E max benson: 94.8 cm/sec Lat Peak E' Benson: 13.2 cm/sec Med Peak E' Benson: 9.4 cm/sec MV A max benson: 72.0 cm/sec E/E' lat: 7.2 E/E' med: 10.1 MV E/A: 1.3 MV V2 max: 99.0 cm/sec MV P1/2t max benson: 99.7 cm/sec Ao V2 max: 170.1 cm/sec MV max P.9 mmHg MV P1/2t: 107.8 msec Ao max P.6 mmHg MV V2 mean: 61.1 cm/sec MV dec slope: 270.7 cm/sec2 Ao V2 mean: 115.1 cm/sec MV mean P.7 mmHg Ao mean P.1 mmHg MV V2 VTI: 22.7 cm MVA(P1/2t): 2.0 cm2 Ao V2 VTI: 32.0 cm MVA(VTI): 5.0 cm2 NOREEN(I,D): 3.5 cm2 NOREEN(V,D): 3.1 cm2 LV V1 max: 113.4 cm/sec SV(LVOT): 113.3 ml PA V2 max: 87.6 cm/sec LV V1 max P.1 mmHg LV V1 mean P.6 mmHg LV V1 mean: 73.7 cm/sec LV V1 VTI: 24.6 cm ECHO/Echo Complete W/ Contrast Interpretation Summary Normal LV size. Left ventricular systolic function is normal. The estimated ejection fraction is 60 %. Mild concentric left ventricular hypertrophy. Bicuspid aortic valve. Contrast injection was performed. Ordering Physician: Miesha Santoro Referring Physician: MD Rebecca Derrick Performed By: James Rivera RCS
[2021-03-24 06:55] LABS: Bedside Glucose 183 mg/dL (70-110)
--- NOTE | 2021-03-24 10:27 | STRESSREP ---
Stress Test Report Exercise myocardial perfusion stress test. 45-year-old male with a history of chest pain. Stress protocol: Resting EKG demonstrates normal sinus rhythm with a rate of 75 bpm and a right bundle branch block. Resting blood pressure is 168/98 mmHg. The patient exercised according to regular [place] protocol for total duration of 6 minutes. The maximum heart rate attained was 169 bpm which was 95% of maximum predicted heart rate the maximum workload was 7.2 metabolic equivalents. At rest there were no ST or T wave changes noted to suggest ischemia at peak exercise upsloping ST changes were noted which did not meet the criteria for ischemia. No clinical angina was noted the test was terminated due to leg fatigue. The peak blood pressure was 210/68 with a rate-pressure product of 34,800. Myocardial perfusion protocol. 14.9 mCi of technetium 99m sestamibi was injected at rest. The patient exercised according to regular [place] protocol. At peak exercise 44.8 mCi of technetium 99m sestamibi was injected stress images were obtained stress and rest images were constructed and compared in the short axis vertical long and horizontal long axis. Gated images were also obtained Perfusion SPECT analysis: Review of the stress images demonstrate normal uptake of tracer noted in all areas of the myocardium. The resting images similarly demonstrate normal uptake of tracer noted in all areas of the myocardium. No areas of reversibility are noted to suggest ischemia and no previous infarct is noted. Gated SPECT analysis: The gated ejection fraction is 66%. Conclusion: Normal exercise myocardial perfusion stress test at a moderate workload. Preserved ejection fraction.
--- NOTE | 2021-03-24 10:41 | PCM.DC ---
Discharge Instructions Diet Discharge Diet: No restrictions Activity Discharge Activity: Return to Normal Activity Follow Up Care Please Follow Up With: Primary care provider When: Within the next two weeks. Test Results: Test results from this visit will be discussed in further detail at your follow-up appointment, if applicable. Discharge Plan Admission Admit Date/Time: 03/24/21 00:24 Primary Reason for Your Visit: Chest pain Attending Provider: Davi Sheikh Primary Care Provider: Derrick Fernandez Instructions Patient Instructions: ED Chest Pain, Noncardiac Discharge Orders/Prescriptions Prescriptions: Continued metformin 500 mg Tablet Extended Release 24 Hr 500 mg PO DAILY RF: 0 prednisone 10 mg Tablet 10 mg PO DAILY RF: 0 cholecalciferol (vitamin D3) [Vitamin D3] 125 mcg (5,000 unit) Tablet 1,250 mcg PO QWEEK RF: 0 Referrals / Follow Up: Derrick Fernandez MD [Primary Care Provider] - Within 2 Weeks EliseHenok MD [STAFF PHYSICIAN] - See Referral Note (Follow up with Cardiology within the next 90 days for Bicuspid aortic valve discharge on Echocardiogram. ) Disposition Disposition (needs filled in before D/C Order can be placed): Home, Self Care
--- NOTE | 2021-03-24 10:48 | DS.PCM_ITS ---
Documented by User: Luis F SIMMONS 03/24/21 14:13 Providers Date of Admission: 03/24/21 Primary Care Physician: Dr. Derrick Fernandez MD Reason For Visit: CHEST PAIN Diagnosis Discharge Diagnosis (1) Chest tightness: Status: Acute Code(s): R07.89 - Other chest pain Medications at Discharge Home Medications metformin 500 mg PO DAILY 03/23/21 cholecalciferol (vitamin D3) [Vitamin D3] 1,250 mcg PO QWEEK 03/24/21 prednisone 10 mg PO DAILY 03/24/21 Hospital Course Summary of Care Provided Minutes Spent on Discharge: 35 Hospital Course: 1) chest pain/ACS rule out Stress test completed on 03/24 demonstrates normal myocardial perfusion and an estimated EF of 68%. Echo on 03/24 demonstrated normal LV size and systolic function and estimated EF of 60% and a bicuspid aortic valve. Cardiology would like to follow patient given bicuspid aortic valve. EKG on admission was normal sinus rhythm with right bundle-branch block. Chest x-ray demonstrated no acute cardiopulmonary process. Patient currently reports chest pain has resolved. Plan; follow-up with primary care provider within the next 2 weeks, follow-up with cardiology within the next 90 days for bicuspid aortic valve. 2) DM2 Continue home Metformin, follow-up with primary care provider within the next 2 weeks. 3) HTN Stable, not on any antihypertensive regimen, follow-up with primary care provider in the next 2 weeks. 4) elevated D-dimer D-dimer elevated on admission. CT-A was limited, however did not demonstrate any evidence of pulmonary embolism. Patient complains of no shortness of breath, cough, hemoptysis or lower extremity pain/swelling. Patient seen by Luis F Pappas PA-C, under the supervision of Dr. Sheikh. Physical Exam Narrative Patient is a 45-year-old male comfortably resting in bed, alert and orient x3. Denies chest pain, shortness of breath, palpitations, hemoptysis, sputum production, fever, chills, N/V/D. Const alert, oriented x3 and no apparent distress HEENT normocephalic, head/scalp atraumatic and hearing grossly normal bilaterally Eyes EOMs intact bilaterally and conjunctivae normal Neck no lymphadenopathy, supple and no JVD Resp normal respiratory effort, no retractions, no use of accessory muscles and clear to auscultation bilaterally Cardio regular rate, regular rhythm, no murmurs and no JVD GI normal to inspection, nondistended, normoactive bowel sounds, soft to palpation and non-tender Extremity normal to inspection, full ROM and no clubbing, cyanosis or edema Skin no rashes or lesions noted, no wounds and skin turgor normal Neuro CN's II-XII intact bilaterally Psych affect normal Weight / BMI Weight Weight: 345 lb 3.902 oz Body Mass Index (BMI) 49.6 ABG / Lab / Microbiology Data Result Diagrams: 03/24/21 01:55 03/24/21 01:55 Laboratory: Laboratory Results - last 24 hr 03/23/21 03/23/21 03/23/21 20:04 20:04 20:28 WBC 10.4 RBC 5.76 Hgb 16.4 Hct 48.6 MCV 84.4 MCH 28.5 MCHC 33.7 RDW Std Deviation 40.0 RDW Coeff of Eugenie 13.2 Plt Count 186 MPV 10.6 Immature Gran % (Auto) 0.400 Neut % (Auto) 69.2 Lymph % (Auto) 23.1 [place] % (Auto) 5.9 Eos % (Auto) 0.8 Baso % (Auto) 0.6 Absolute Neuts (auto) 7.2 Absolute Lymphs (auto) 2.41 Nucleated RBC % 0 D-Dimer Quant (PE/DVT) 0.58 H* Sodium 136 Potassium 4.4 Chloride 104 Carbon Dioxide 29.0 Anion Gap 3 L BUN 19 H Creatinine 1.21 Estim Creat Clear Calc 81.28 Est GFR (MDRD) Af Amer 84 Est GFR (MDRD) Non-Af 69 BUN/Creatinine Ratio 15.7 Glucose 276 H Calcium 9.3 Troponin I High Sens 4.0 POC Glucose 03/23/21 03/24/21 03/24/21 22:06 01:55 01:55 WBC 9.3 RBC 5.35 Hgb 15.4 Hct 44.7 MCV 83.6 MCH 28.8 MCHC 34.5 RDW Std Deviation 39.4 RDW Coeff of Eugenie 13.1 Plt Count 171 MPV 10.1 Immature Gran % (Auto) 0.200 Neut % (Auto) 59.0 Lymph % (Auto) 30.7 [place] % (Auto) 6.7 Eos % (Auto) 2.8 Baso % (Auto) 0.6 Absolute Neuts (auto) 5.5 Absolute Lymphs (auto) 2.84 Nucleated RBC % 0 D-Dimer Quant (PE/DVT) Sodium 138 Potassium 3.5 Chloride 106 Carbon Dioxide 26.0 Anion Gap 6 BUN 18 Creatinine 0.98 Estim Creat Clear Calc 100.35 Est GFR (MDRD) Af Amer 107 Est GFR (MDRD) Non-Af 88 BUN/Creatinine Ratio 18.4 Glucose 184 H Calcium 8.6 Troponin I High Sens 4.9 POC Glucose 03/24/21 03/24/21 01:55 06:37 WBC RBC Hgb Hct MCV MCH MCHC RDW Std Deviation RDW Coeff of Eugenie Plt Count MPV Immature Gran % (Auto) Neut % (Auto) Lymph % (Auto) [place] % (Auto) Eos % (Auto) Baso % (Auto) Absolute Neuts (auto) Absolute Lymphs (auto) Nucleated RBC % D-Dimer Quant (PE/DVT) Sodium Potassium Chloride Carbon Dioxide Anion Gap BUN Creatinine Estim Creat Clear Calc Est GFR (MDRD) Af Amer Est GFR (MDRD) Non-Af BUN/Creatinine Ratio Glucose Calcium Troponin I High Sens 6.6 POC Glucose 183 H Radiography Diagnostic Testing: Radiology Impression Chest X-Ray 03/23/21 20:35 IMPRESSION: No acute radiographic abnormalities. Electronically Signed: Jack Galvez MD at 21:31 EDT Tel , Service support , Chest CTA 03/23/21 22:02 IMPRESSION: 1. There is limited enhancement of the main pulmonary artery and right and left pulmonary arteries. There is limited enhancement of the bilateral peripheral pulmonary arteries. There is no demonstrated large or obvious pulmonary embolism, however smaller emboli cannot be excluded due to suboptimal contrast opacification of the arteries. 2. No consolidation or pulmonary edema or pleural effusion is present. Electronically Signed: Amado Burns MD at 23:29 EDT , Service support , D/C Instructions Discharge Diet: No restrictions Please Follow Up With: Primary care provider When: Within the next two weeks. Meaningful Use Info Meaningful Use Diagnoses (Choose all that apply): None applicable Discharge Plan Admission Admit Date/Time: 03/24/21 00:24 Primary Reason for Your Visit: Chest pain Attending Provider: Davi Sheikh Primary Care Provider: Derrick Fernandez Instructions Patient Instructions: ED Chest Pain, Noncardiac Discharge Orders/Prescriptions Prescriptions: Continued metformin 500 mg Tablet Extended Release 24 Hr 500 mg PO DAILY RF: 0 prednisone 10 mg Tablet 10 mg PO DAILY RF: 0 cholecalciferol (vitamin D3) [Vitamin D3] 125 mcg (5,000 unit) Tablet 1,250 mcg PO QWEEK RF: 0 Referrals / Follow Up: Henok Olivares MD [STAFF PHYSICIAN] - See Referral Note (Follow up with Cardiology within the next 90 days for Bicuspid aortic valve discharge on Echocardiogram. ) Derrick Fernandez MD [Primary Care Provider] - Within 2 Weeks Disposition Disposition (needs filled in before D/C Order can be placed): Home, Self Care Documented by User: Dr. Dvai Sheikh MD 03/24/21 14:28 Providers Date of Admission: 03/24/21 Reason For Visit: CHEST PAIN Medications at Discharge Home Medications metformin 500 mg PO DAILY 03/23/21 cholecalciferol (vitamin D3) [Vitamin D3] 1,250 mcg PO QWEEK 03/24/21 prednisone 10 mg PO DAILY 03/24/21 ABG / Lab / Microbiology Data Result Diagrams: 03/24/21 01:55 03/24/21 01:55 Discharge Plan Admission Admit Date/Time: 03/24/21 00:24 Primary Reason for Your Visit: Chest pain Attending Provider: Davi Sheikh Primary Care Provider: Derrick Fernandez Instructions Patient Instructions: ED Chest Pain, Noncardiac Discharge Orders/Prescriptions Prescriptions: Continued metformin 500 mg Tablet Extended Release 24 Hr 500 mg PO DAILY RF: 0 prednisone 10 mg Tablet 10 mg PO DAILY RF: 0 cholecalciferol (vitamin D3) [Vitamin D3] 125 mcg (5,000 unit) Tablet 1,250 mcg PO QWEEK RF: 0 Referrals / Follow Up: Henok Olivares MD [STAFF PHYSICIAN] - See Referral Note (Follow up with Cardiology within the next 90 days for Bicuspid aortic valve discharge on Echocardiogram. ) Derrick Fernandez MD [Primary Care Provider] - Within 2 Weeks Disposition Disposition (needs filled in before D/C Order can be placed): Home, Self Care Charges/Coding Addendum Addendum: Dr. Sheikh: I personally reviewed the chart and examined the patient, and agree with the above findings. 45-year-old male presented to the hospital with exertional chest pain. Risk factors included obesity, diabetes, and hypertension. He had 3 - troponins and had stress test today which was unremarkable. Also echo was unremarkable though did demonstrate a bicuspid aortic valve, this was relayed to the patient and told to follow-up with his PCP as well as cardiology as an outpatient. Discussed plan for discharge today, and he expressed understanding of the risk and benefits and would like to go home today. Visit Charges OBSV E&M: 19218 Observation care discharge
[2021-03-24] MEDS: Insulin Lispro 100 UNIT/ML INSULN.PEN SC (11:23)
--- NOTE | 2021-03-24 11:38 | PHA.DC.MR ---
Pharmacy Service has performed discharge medication reconciliation for this patient. No new medications at time of discharge review. Medications reviewed are from previously reported home medications. Home Medications metformin 500 mg PO DAILY 03/23/21 cholecalciferol (vitamin D3) [Vitamin D3] 1,250 mcg PO QWEEK 03/24/21 prednisone 10 mg PO DAILY 03/24/21 The patient's discharge medication list was reviewed for discrepancies and discrepancies were resolved.
[2021-03-24 12:20] LABS: Bedside Glucose 202 mg/dL (70-110)
== END 2021-03-24 10:47 | disposition home or self-care (01) ==
LOC: ED 23:56 → PCU 03-24 00:47
PROVIDERS: Nurse Practitioner Family; Admitting Provider Hospitalist; Emergency Provider Emergency Medicine; PCP Family Medicine; Visit Provider Family Medicine
DX: R07.89 Other chest pain (principal); R06.02 Shortness of breath; E11.9 Type 2 diabetes mellitus without complications; Z79.899 Other long term (current) drug therapy; Z79.84 Long term (current) use of oral hypoglycemic drugs; Z79.52 Long term (current) use of systemic steroids; I10 Essential (primary) hypertension; E66.9 Obesity, unspecified; Z68.42 Body mass index [BMI] 45.0-49.9, adult; G47.33 Obstructive sleep apnea (adult) (pediatric); Q23.1 Congenital insufficiency of aortic valve
CPT/HCPCS: 71045; 71275; 78452; 80048; 82962; 84484; 85025; 85379; 93005; 93017; 93306; 96360; 96361; 99218; 99285; A9500; J7030; Q9957; Q9967; A4216; C8929; G0378; J3490

== ENCOUNTER 2021-03-31 14:28 | Emergency (ER) | payer MEDICAID, SELFPAY ==
[2021-03-24 00:39] VITALS: BMI 49.6
[2021-03-31 14:29] VITALS: BP 165/82; PULSE 84; RESP 16; TEMP 36.3; O2SAT 97; BMI 48.7
--- NOTE | 2021-03-31 14:52 | EX.ED.DYSGE1 ---
HPI History of Present Illness Chief Complaint: Numb/Ting Informant: patient Narrative Narrative: 45-year-old male history of diabetes states he was recently admitted to the hospital for chest pain and had stress test and echocardiogram. Tells me that there was something about his heart that they put on his discharge papers that he does not know what it is would like to know what that is. He states he has been having a significant amount of anxiety about his hospitalization. He also reports that he was recently diagnosed with diabetes and started on Metformin which he subsequently talk to his doctor about and discontinued today. He notes that yesterday he had an episode of bilateral forehead tingling and pressure burning sensation in the periorbital region. He also states he had tingling in his left ring and long finger. Symptoms came back today and he was worried so he came to emergency. He denies any muscle strength loss. No rashes. No headache. [facility] Medical History (Updated 03/31/21 @ 16:[address] Parish Stock DO) Bicuspid aortic valve Diabetes Home Medications ergocalciferol (vitamin D2) [Vitamin D2] 50,000 unit PO QWEEK 03/31/21 [History Last Taken Unknown] Allergy/AdvReac Type Severity Reaction Status Date / Time lisinopril Allergy Anaphylaxis Verified 03/31/21 14:31 Family History Father Hypertension Social History Smoking Status: Never smoker substance use type: does not use ROS ROS ED Constitutional Constitutional ED: Denies chills or weight loss Eyes Eyes: Denies change in vision or diplopia ENT ENT ED: Denies ear pain, rhinorrhea or sore throat Cardiovascular Cardiovascular: Denies chest pain, orthopnea, palpitations or racing heartbeat Respiratory/Chest Respiratory/Chest: Denies cough, dyspnea or orthopnea Gastrointestinal Gastrointestinal: Denies abdominal pain, diarrhea, nausea or vomiting Genitourinary Genitourinary ED: Denies dysuria, hematuria or urinary frequency Musculoskeletal Musculoskeletal: Denies arthralgias or myalgias Integumentary Denies abscess or rash Neurologic Neurologic: Reports paresthesias; Denies headache(s) or weakness Psychiatric Psychiatric: Reports anxiety; Denies depression, suicidal ideation or suicidal thoughts Endocrine Endocrinology: Denies polydipsia, polyphagia or polyuria Allergic/Immunologic Allergic/Immunologic ED: Denies mouth swelling, tongue swelling or urticaria EXAM Physical Exam Const Vital Signs: 03/31/21 14:29 Temperature 97.3 F L Temperature Source Temporal Pulse Rate 84 Respiratory Rate 16 Blood Pressure 165/82 H Blood Pressure Mean 109 Pulse Ox 97 Oxygen Delivery Method Room Air Positive well nourished and well developed General Appearance ED: well developed HEENT Reports normocephalic, head/scalp atraumatic and moist mucous membranes Eyes PERRL and EOMs intact bilaterally Neck no lymphadenopathy, supple and no JVD Resp normal respiratory effort and clear to auscultation bilaterally Cardio regular rate, regular rhythm and no murmurs GI normal to inspection, nondistended, normoactive bowel sounds and non-tender Palpation: soft Back/Spine no CVA tenderness and normal ROM Extremity normal to inspection General Extremety ED: Negative for edema General Extremity: Negative for edema Neuro oriented x3 and CN's II-XII intact bilaterally Sensorium / Orientation: alert Motor Exam: strength 5/5 throughout Psych mental status grossly normal Mood & Affect: anxious; Negative for depressed or tearful Skin no rashes or lesions noted and no wounds MDM MDM MDM Narrative Medical decision making narrative: Sodium potassium magnesium within the normal range. CO2 at 26. BUN of 14. TSH normal. At this point I believe patient can be discharged home. Follow-up as needed with primary care Lab Data Attestation: I reviewed the patient's lab results. Labs: Laboratory Results - last 24 hr 03/31/21 15:40 Sodium 138 Potassium 4.0 Chloride 107 Carbon Dioxide 26.0 Anion Gap 5 BUN 14 Creatinine 1.07 Estim Creat Clear Calc 91.91 Est GFR (MDRD) Af Amer 97 Est GFR (MDRD) Non-Af 80 BUN/Creatinine Ratio 13.1 Glucose 142 H Calcium 9.2 Magnesium 2.1 TSH 1.01 Discharge Plan Triage Chief Complaint: Numb/Ting ED Provider: Parish Stock Dx/Rx/DC Orders Clinical Impression: Hand paresthesia, Facial paresthesia Instructions: ED Paraesthesias Prescriptions: No Action Vitamin D2 25,000 unit Capsule 50,000 unit PO QWEEK RF: 0 Primary Care Provider: Derrick Fernandez Referrals: Derrick Fernandez MD [Primary Care Provider] - 1 Week if not improving Disposition Disposition: Home, Self Care
[2021-03-31 16:16] LABS: Anion Gap 5 (5-15); BUN 14 mg/dL (7-18); BUN/Creat Ratio 13.1 RATIO (10-20); Calcium,Total 9.2 mg/dL (8.5-10.1); Chloride 107 mmol/L (98-107); Creatinine, Serum 1.07 mg/dL (0.70-1.30); EST Glomerular Filtration Rate 80 mL/min (>60); Est Glom Filt Rate - Afr Amer 97 mL/min (>60); Estimated Creatinine Clearance 91.91 ml/min; Glucose 142 mg/dL (74-106); Magnesium 2.1 mg/dL (1.6-2.6); Sodium Level 138 mmol/L (136-145); Thyroid Stim Hormone (TSH) 1.01 uIU/mL (0.358-3.74)
[2021-03-31 16:47] VITALS: BP 147/93; PULSE 74; RESP 14; O2SAT 96
== END 2021-03-31 16:48 | disposition home or self-care (01) ==
PROVIDERS: Emergency Provider Emergency Medicine; PCP Family Medicine
DX: R20.2 Paresthesia of skin (principal)
CPT/HCPCS: 80048; 83735; 84443; 99283

== ENCOUNTER 2021-12-19 18:30 | Emergency (ER) | payer MEDICAID, SELFPAY ==
[2021-12-19 18:31] VITALS: BP 159/96; PULSE 79; RESP 14; TEMP 36.2; O2SAT 100; BMI 41.1
--- NOTE | 2021-12-19 18:43 | EDS_ITS ---
HPI History of Present Illness Chief Complaint: Flank Pain Informant: patient Onset/Context/Timing Onset: Today Current Severity: Mild Maximum Severity: Moderate Narrative Narrative: Patient presents with left flank pain onset 1 hour ago. He does report a history of kidney stone several years ago. He said no recent urinary symptoms. He also has been having trouble with constipation over the past month. He was able to have a small bowel movement shortly prior to arrival. [facility] Medical History Bicuspid aortic valve Essential hypertension Obesity Obstructive sleep apnea Right bundle branch block (RBBB) Type 2 diabetes mellitus Home Medications ergocalciferol (vitamin D2) [Vitamin D2] 50,000 unit PO QWEEK 03/31/21 [History Last Taken Unknown] glimepiride 4 mg tablet 4 mg PO DAILY 05/03/21 [History Last Taken Unknown] hydrocodone-acetaminophen 1 tab PO Q6H PRN 3 Days #10 tab 12/19/21 [Rx Last Taken Unknown] ibuprofen 600 mg PO Q8H PRN #14 tab 12/19/21 [Rx Last Taken Unknown] magnesium citrate 300 ml PO DAILY PRN #296 ml 12/19/21 [Rx Last Taken Unknown] Allergy/AdvReac Type Severity Reaction Status Date / Time lisinopril Allergy Anaphylaxis Verified 12/19/21 18:31 metformin Allergy severe Verified 12/19/21 18:31 dyspnea Family History Father Hypertension Surgical History History of eye surgery Social History Smoking Status: Never smoker substance use type: does not use ROS ROS ED Constitutional Constitutional ED: Denies chills or fever(s) Eyes Eyes: Denies change in vision ENT ENT ED: Denies sore throat Cardiovascular Cardiovascular: Denies chest pain Respiratory/Chest Respiratory/Chest: Denies cough or dyspnea Gastrointestinal Gastrointestinal: Reports abdominal pain and constipation; Denies diarrhea, nausea or vomiting Genitourinary Genitourinary ED: Denies dysuria or hematuria Musculoskeletal Musculoskeletal: Reports back pain Integumentary Denies rash Neurologic Neurologic: Denies headache(s) Allergic/Immunologic Allergic/Immunologic ED: Denies urticaria EXAM Physical Exam Const Vital Signs: 12/19/21 18:31 Temperature 97.1 F L Temperature Source Temporal Pulse Rate 79 Respiratory Rate 14 Blood Pressure 159/96 H Blood Pressure Mean 117 Pulse Ox 100 Oxygen Delivery Method Room Air Positive well nourished and well developed General Appearance ED: well developed HEENT Reports moist mucous membranes Eyes PERRL and EOMs intact bilaterally Neck supple Chest Wall inspection of chest normal and palpation of chest normal Resp normal respiratory effort and clear to auscultation bilaterally Cardio regular rate and regular rhythm GI GI Narrative: Very mild left-sided tenderness palpation. No guarding or rebound. Hypoactive but present bowel sounds noted. Palpation: soft Neuro oriented x3 Sensorium / Orientation: alert Psych mental status grossly normal Skin no rashes or lesions noted MDM MDM MDM Narrative Medical decision making narrative: Patient was given a dose of Bentyl for pain as he felt like he was having constipation cramps. Lab work and urinalysis obtained. CT flank ordered. Lab Data Attestation: I reviewed the patient's lab results. Labs: Laboratory Results - last 24 hr 12/19/21 12/19/21 12/19/21 18:53 18:53 18:58 WBC 6.4 RBC 5.62 Hgb 16.8 H Hct 48.4 MCV 86.1 MCH 29.9 MCHC 34.7 RDW Std Deviation 40.7 RDW Coeff of Eugenie 13.1 Plt Count 143 L MPV 10.4 Immature Gran % (Auto) 0.300 Neut % (Auto) 61.5 Lymph % (Auto) 29.4 [place] % (Auto) 7.0 Eos % (Auto) 1.3 Baso % (Auto) 0.5 Absolute Neuts (auto) 3.9 Absolute Lymphs (auto) 1.88 Nucleated RBC % 0 Sodium 139 Potassium 4.4 Chloride 108 H Carbon Dioxide 28.0 Anion Gap 3 L BUN 17 Creatinine 1.40 H Estim Creat Clear Calc 69.52 Est GFR (MDRD) Af Amer 71 Est GFR (MDRD) Non-Af 58 L BUN/Creatinine Ratio 12.1 Glucose 121 H Calcium 9.3 Urine Color Brown Urine Clarity Cloudy Urine pH 5.0 Ur Specific [place] 1.025 Urine Protein 100 H Urine Glucose (UA) Normal Urine Ketones 50 H Urine Occult Blood 250 H Urine Nitrite Negative Urine Bilirubin 1 H Urine Urobilinogen Normal Ur Leukocyte Esterase 100 H Urine RBC > 100 SEEN Urine WBC 0-5 SEEN Ur Squamous Epith Cells 0 SEEN Calcium Oxalate Crystal RARE Amorphous Sediment 3+ Urine Bacteria 0 SEEN Urine Mucus 0 SEEN Radiography Diagnostic Testing: Clinical Impression(s) from Imaging Studies Abdomen/Pelvis CT 12/19/21 19:02 IMPRESSION: 2 mm mid left ureteral stone with associated hydroureteronephrosis. Electronically Signed: Fausto Nunn MD at 20:14 EDT , Treatment and Re-Evaluation Narrative: Patient did have significant hematuria when going to the restroom here. Urine is positive for blood but no sign of infection. Renal function reveals a creatinine 1.4. He is given a liter IV fluid for hydration. CBC unremarkable. CT flank reveals a 2 mm left mid ureteral stone. Patient now states that when he went to the restroom this morning he thought he may have passed 2 small kidney stones that he saw in the bowl. At this time pain is 50% improved and he does not feel he needs anything further at this time. He will be given prescription for ibuprofen, [place], magnesium citrate to treat both his kidney stone and constipation. Discharge Plan Triage Chief Complaint: Flank Pain ED Provider: Dee Quinonez Dx/Rx/DC Orders Clinical Impression: Ureterolithiasis, Constipation Instructions: ED Constipation (Adult), ED Kidney Stone w/ Colic Prescriptions: New ibuprofen 600 mg tablet 600 mg PO Q8H PRN (Reason: pain) Qty: 14 RF: 0 hydrocodone-acetaminophen 5-325 mg tablet 1 tab PO Q6H PRN (Reason: pain) 3 Days Qty: 10 RF: 0 magnesium citrate Solution 300 ml PO DAILY PRN (Reason: constipation) Qty: 296 RF: 0 No Action glimepiride 4 mg tablet 4 mg PO DAILY RF: 0 Vitamin D2 25,000 unit Capsule 50,000 unit PO QWEEK RF: 0 Primary Care Provider: Derrick Fernandez Referrals: Raymond Brewster MD [STAFF PHYSICIAN] - As Needed Derrick Fernandez MD [Primary Care Provider] - Disposition Disposition: Home, Self Care
[2021-12-19] MEDS: Dicyclomine 10 MG Capsule 20 MG PO (18:52)
--- NOTE | 2021-12-19 19:02 | CT_ITS ---
STUDY: CT ABDOMEN AND PELVIS WITHOUT CONTRAST REASON FOR EXAM: Male, 46 years old. Left flank pain RADIATION DOSAGE (If Supplied By Facility): CTDIvol = ( 22.52 ) mGy, DLP = ( 1220.82 ) mGycm TECHNIQUE: Transaxial images were obtained from the dome of the diaphragm to the symphysis pubis without oral contrast, and without intravenous contrast. Sagittal and coronal images were reconstructed. Individualized dose optimization techniques were used for this CT. COMPARISON: None. FINDINGS: The visualized lung bases are unremarkable. The visualized portions of the heart are within normal limits. Normal liver. Normal gallbladder and extrahepatic biliary system. Normal spleen. Normal pancreas. Normal bilateral adrenal glands. Normal right kidney. 2 mm mid left ureteral stone with associated hydroureteronephrosis. Normal visualized stomach. Normal small intestine. Normal colon. The appendix is visualized and appears normal. Normal abdominal aorta. Normal inferior vena cava. Normal retroperitoneum. Normal urinary bladder. Normal visualized prostate gland. Normal abdominal wall. Normal osseous structures. CT/Abdomen/Pelvis without Cont IMPRESSION: 2 mm mid left ureteral stone with associated hydroureteronephrosis. Electronically Signed: Fausto Nunn MD at 20:14 EDT ,
[2021-12-19 19:09] LABS: Absolute Lymphocyte Count 1.88 X10^3/uL (0.83-4.51); Absolute Neutrophil Count 3.9 X10^3/uL (2.0-7.7); Basophil# 0.03 X10^3/uL; Basophil% 0.5 % (0-1); Eosinophil# 0.08 X10^3/uL; Eosinophils% 1.3 % (0-5); Hematocrit 48.4 % (40-54); Hemoglobin 16.8 g/dL (13.0-16.5); Lymphocyte # 1.88 X10^3/ul (0.83-4.51); Lymphocyte % 29.4 % (19-41); Mean Corp Hgb Conc 34.7 g/dL (32-36); Mean Corpuscular Hgb 29.9 pg (27.0-32.0); Mean Corpuscular Volume 86.1 fL (80-94); Mean Platelet Vol. 10.4 fl (6.2-12.0); Monocyte# 0.45 X10^3/uL; NRBC Flagged by Analyzer 0 % (0-5); Neutrophil # 3.93 X10^3/uL (2.7-7.7); Neutrophil % 61.5 % (47-70); Platelet Count 143 K/mm3 (150-450); RBC Distribution Width CV 13.1 % (11.6-14.6); RBC Distribution Width SD 40.7 fl (35.1-43.9); Red Blood Count 5.62 M/mm3 (4.6-6.2); White Blood Count 6.4 K/mm3 (4.4-11.0)
[2021-12-19 19:11] LABS: Bacteria 0 SEEN /hpf (None Seen); Mucous, Urine 0 SEEN /hpf (<or=2+); Squamous Epithelial Cells - UA 0 SEEN /hpf (0-5)
[2021-12-19 19:13] LABS: Color, Urine Brown (Yellow); Glucose, Dipstick Normal (Normal); Ketone-Dipstick 50 mg/dl (Negative); Leukocyte Esterase-Dipstick 100 /ul (Negative); Nitrite-Dipstick Negative (Negative); Occult Blood-Urine 250 /ul (Negative); Protein-Dipstick 100 mg/dl (Negative); Specific Gravity, Urine 1.025 (1.002-1.030); Urine Bilirubin Dipstick 1 mg/dL (Negative); Urine Clarity Cloudy (Clear); Urine Urobilinogen Normal (Normal)
[2021-12-19 19:14] LABS: Anion Gap 3 (5-15); BUN 17 mg/dL (7-18); BUN/Creat Ratio 12.1 RATIO (10-20); Calcium,Total 9.3 mg/dL (8.5-10.1); Chloride 108 mmol/L (98-107); EST Glomerular Filtration Rate 58 mL/min (>60); Est Glom Filt Rate - Afr Amer 71 mL/min (>60); Estimated Creatinine Clearance 69.52 ml/min; Glucose 121 mg/dL (74-106); Potassium 4.4 mmol/L (3.5-5.1); Sodium Level 139 mmol/L (136-145)
[2021-12-19 19:22] LABS: Red Blood Cells-Urine > 100 SEEN /hpf (0-5)
[2021-12-19 19:25] LABS: Calcium Oxalate Crystals Ur RARE /hpf (<or=2+); White Blood Cells 0-5 SEEN /hpf (0-5)
[2021-12-19 19:26] LABS: Amorphous Sediment 3+
[2021-12-19] MEDS: 0.9% Normal Saline 1,000 ML 999 ML IV (19:33)
== END 2021-12-19 21:01 | disposition home or self-care (01) ==
PROVIDERS: Emergency Provider Emergency Medicine; PCP Family Medicine; Visit Provider Emergency Medicine
DX: N13.2 Hydronephrosis with renal and ureteral calculous obstruction (principal); Z68.41 Body mass index [BMI] 40.0-44.9, adult; E11.9 Type 2 diabetes mellitus without complications; K59.00 Constipation, unspecified; I10 Essential (primary) hypertension; E66.9 Obesity, unspecified; Z79.84 Long term (current) use of oral hypoglycemic drugs; Z79.899 Other long term (current) drug therapy
CPT/HCPCS: 74176; 80048; 81001; 85025; 96360; 99283; J7030; A4216

== ENCOUNTER 2022-03-14 08:07 | Emergency (ER) | payer MEDICAID, SELFPAY ==
[2022-03-14 08:08] VITALS: BP 135/85; PULSE 87; RESP 16; TEMP 36.4; O2SAT 98; BMI 35.8
--- NOTE | 2022-03-14 08:21 | EX.ED.DYSGE1 ---
HPI History of Present Illness Chief Complaint: Cold Sx Informant: patient Onset/Context/Timing Onset: Yesterday Context: Gradual Onset Current Severity: Mild Maximum Severity: Mild Narrative Narrative: Patient presents secondary to URI symptoms. He complains of body aches with subjective fever. Has had mild cough with sputum production. No chest pain. No nausea or vomiting. His recently tested positive for COVID. Patient does report urinary frequency. [facility] Medical History Bicuspid aortic valve Essential hypertension Obesity Obstructive sleep apnea Right bundle branch block (RBBB) Type 2 diabetes mellitus Home Medications ergocalciferol (vitamin D2) 25,000 unit capsule 50,000 unit PO QWEEK 03/31/21 [History Last Taken Unknown] glimepiride 4 mg tablet 4 mg PO DAILY 05/03/21 [History Last Taken Unknown] hydrocodone-acetaminophen 5-325mg 5mg-325mg 1 tab PO Q6H PRN pain 3 days #10 tabs 12/19/21 [Rx Last Taken Unknown] ibuprofen 600 mg tablet 600 mg PO Q8H PRN pain #14 tabs 12/19/21 [Rx Last Taken Unknown] magnesium citrate 300 ml PO DAILY PRN constipation #296 mL 12/19/21 [Rx Last Taken Unknown] Allergy/AdvReac Type Severity Reaction Status Date / Time lisinopril Allergy Anaphylaxis Verified 03/14/22 08:07 metformin Allergy severe Verified 03/14/22 08:07 dyspnea Family History Father Hypertension Surgical History History of eye surgery Social History Smoking Status: Never smoker substance use type: does not use ROS ROS ED Constitutional Constitutional ED: Reports fever(s) and subjective; Denies chills Eyes Eyes: Denies change in vision or discharge from eye(s) ENT ENT ED: Denies discharge from eye(s), rhinorrhea or sore throat Cardiovascular Cardiovascular: Denies chest pain or palpitations Respiratory/Chest Respiratory/Chest: Reports cough and sputum; Denies dyspnea Gastrointestinal Gastrointestinal: Denies abdominal pain, diarrhea, nausea or vomiting Genitourinary Genitourinary ED: Denies difficulty urinating or dysuria Musculoskeletal Musculoskeletal: Reports myalgias; Denies back pain or extremity pain Integumentary Denies Abrasions or rash Neurologic Neurologic: Denies headache(s) or weakness Allergic/Immunologic Allergic/Immunologic ED: Denies lip swelling or urticaria EXAM Physical Exam Const Vital Signs: 03/14/22 08:08 Temperature 97.6 F L Temperature Source Temporal Pulse Rate 87 Respiratory Rate 16 Blood Pressure 135/85 H Blood Pressure Mean 101 Pulse Ox 98 Oxygen Delivery Method Room Air Positive well nourished and well developed General Appearance ED: well developed HEENT Reports normocephalic and head/scalp atraumatic Eyes PERRL and EOMs intact bilaterally Neck supple Chest Wall inspection of chest normal and palpation of chest normal Resp normal respiratory effort and clear to auscultation bilaterally Cardio regular rate and regular rhythm GI normal to inspection, nondistended, normoactive bowel sounds Palpation: soft Back/Spine no CVA tenderness Extremity normal to inspection Neuro oriented x3 and no sensory deficits noted Sensorium / Orientation: alert Motor Exam: strength 5/5 throughout Psych mental status grossly normal Skin no rashes or lesions noted MDM MDM MDM Narrative Medical decision making narrative: Blood sugar obtained. Urinalysis ordered along with rapid COVID test. Patient given Naprosyn for body aches. Lab Data Attestation: I reviewed the patient's lab results. Labs: Laboratory Results - last 24 hr 03/14/22 03/14/22 08:30 08:56 Urine Color Yellow Urine Clarity Clear Urine pH 6.0 Ur Specific [place] 1.020 Urine Protein 30 H Urine Glucose (UA) Normal Urine Ketones 5 H Urine Occult Blood Negative Urine Nitrite Negative Urine Bilirubin 1 H Urine Urobilinogen 1 H Ur Leukocyte Esterase 25 H Urine RBC 0 SEEN Urine WBC 0-5 SEEN Ur Squamous Epith Cells 0 SEEN Urine Bacteria 0 SEEN Urine Mucus 0 SEEN POC Glucose 125 H Treatment and Re-Evaluation Narrative: Rapid COVID test is positive. Blood sugar is 125 and urinalysis is unremarkable. Test results discussed with the patient. He will continue supportive care at home. We discussed Paxlovid and he would like to try treatment without this at this time. He will just continue supportive care at home. Return instructions provided. Discharge Plan Triage Chief Complaint: Cold Sx ED Provider: Quinonez,Dee Dx/Rx/DC Orders Clinical Impression: COVID-19 Instructions: Coronavirus Disease 2019 (COVID-19): Overview, Coronavirus Disease 2019 (COVID-19): Caring for Yourself or Others Prescriptions: No Action glimepiride 4 mg tablet 4 mg PO DAILY Vitamin D2 25,000 unit Capsule 50,000 unit PO QWEEK ibuprofen 600 mg tablet 600 mg PO Q8H PRN (Reason: pain) Qty: 14 0RF hydrocodone-acetaminophen 5-325 mg tablet 1 tab PO Q6H PRN (Reason: pain) 3 Days Qty: 10 0RF magnesium citrate Solution 300 ml PO DAILY PRN (Reason: constipation) Qty: 296 0RF Rx Instructions: Drink half of bottle. If no significant bowel movement 4 hours drink remaining liquid. Stand Alone Forms: ED Work / School Excuse Primary Care Provider: Derrick Fernandez Referrals: Derrick Fernandez MD [Primary Care Provider] - 1-2 Weeks Disposition Disposition: Home, Self Care
[2022-03-14] MEDS: Naproxen 500 MG Tablet PO (08:28)
[2022-03-14 08:36] LABS: Bedside Glucose 125 mg/dL (74-106)
[2022-03-14 08:59] LABS: Bacteria 0 SEEN /hpf (None Seen); Mucous, Urine 0 SEEN /hpf (<or=2+); Red Blood Cells-Urine 0 SEEN /hpf (0-5); Squamous Epithelial Cells - UA 0 SEEN /hpf (0-5)
[2022-03-14 09:02] LABS: Color, Urine Yellow (Yellow); Glucose, Dipstick Normal (Normal); Ketone-Dipstick 5 mg/dl (Negative); Leukocyte Esterase-Dipstick 25 /ul (Negative); Nitrite-Dipstick Negative (Negative); Occult Blood-Urine Negative /ul (Negative); Protein-Dipstick 30 mg/dl (Negative); Urine Clarity Clear (Clear); Urine Urobilinogen 1 mg/dl (Normal)
[2022-03-14 09:19] LABS: Urine Bilirubin Dipstick 1 mg/dL (Negative)
[2022-03-14 09:21] LABS: White Blood Cells 0-5 SEEN /hpf (0-5)
[2022-03-14 10:18] VITALS: O2SAT 97
== END 2022-03-14 10:19 | disposition home or self-care (01) ==
PROVIDERS: Emergency Provider Emergency Medicine; PCP Family Medicine; Visit Provider Emergency Medicine
DX: U07.1 COVID-19 (principal); E11.9 Type 2 diabetes mellitus without complications; I10 Essential (primary) hypertension; E66.9 Obesity, unspecified; Z68.35 Body mass index [BMI] 35.0-35.9, adult; Z79.84 Long term (current) use of oral hypoglycemic drugs; Z79.899 Other long term (current) drug therapy
CPT/HCPCS: 81001; 82962; 87811; 99283